=== PATIENT | male | born 1980 | race Caucasian/White ===

== ENCOUNTER 2016-09-26 12:44 | Emergency (ER) | payer SELFPAY ==
[2016-09-26 12:55] VITALS: BP 142/98
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
== END 2016-09-26 14:15 | disposition home or self-care (01) ==
LOC: ER 12:44
DX: M62.830 Muscle spasm of back (principal); S46.812A Strain of other muscles, fascia and tendons at shoulder and upper arm level, left arm, initial encounter